=== PATIENT | female | born 1945 | race Caucasian/White ===

== ENCOUNTER 2017-12-06 09:01 | Emergency (ER) | payer MEDICARE, MEDICAID ==
[2017-12-06] MEDS ORDERED: Sodium Chloride 0.9% 10 ML Syringe FLUSH PRN (09:37)
[2017-12-06] MEDS ORDERED: Ondansetron 4 MG/2 ML SDV IVPUSH ONE (09:37)
[2017-12-06] MEDS ORDERED: HYDROmorphone 0.5 MG/0.5 ML SYRINGE IVPUSH ONE (09:41)
[2017-12-06] MEDS ORDERED: Sodium Chloride 0.9% 1,000 ML IV SCH (09:45)
--- NOTE | 2017-12-06 09:54 | EDM.PDOC ---
<Guero Nina - Last Filed: 12/06/17 09:43> ED HPI GENERAL MEDICAL PROBLEM - General Chief Complaint: Respiratory Problem Stated Complaint: SOB Time Seen by Provider: 12/06/17 09:20 Source of Information: Reports: Patient History Limitations: Reports: No Limitations - History of Present Illness INITIAL COMMENTS - FREE TEXT/NARRATIVE: Patient is a 71-year-old female who presents to the ED with a complaint of shortness of breath. It started yesterday morning and states she felt fatigued, dizzy and just couldn't wake up. She feels disoriented and off-balance, but denies falling or feeling like the room is spinning. She has blurred vision and feels like her head weighs a ton, but denies headache. She has known neuropathy in her legs, but feels the pain has increased since yesterday. She denies recent illness, fever, or chills. She is nauseated, vomited once this morning and has diarrhea. Denies chest pain or pressure. She has a history of COPD, but did not take her Spiriva or Symbicort this morning. She reports having a history of a heart attack, stents, and a 4 cm aortic aneurysm. She just recently moved to [place] from [place] and has not seen a paper slitter yet. Bilateral Leg Pain Score (Numeric/FACES): 9 - Related Data Allergies Allergy/AdvReac Type Severity Reaction Status Date / Time No Known Allergies Allergy Verified 12/06/17 09:12 Home Meds: Home Meds ALPRAZolam [Xanax] 0.5 mg PO BEDTIME PRN 12/06/17 [History] Carvedilol [Coreg] 6.25 mg PO BID 12/06/17 [History] Isosorbide Mononitrate [Imdur] 30 mg PO DAILY 12/06/17 [History] Pregabalin [Lyrica] 75 mg PO DAILY 12/06/17 [History] atorvaSTATin [Lipitor] 20 mg PO BEDTIME 12/06/17 [History] traMADol HCl [Tramadol HCl] 50 mg PO Q6HR PRN 12/06/17 [History] Past Medical History HEENT History: Reports: Impaired Vision Cardiovascular History: Reports: Aneurysm, [place] Other Cardiovascular History: aneurysm at 3 Respiratory History: Reports: COPD Genitourinary History: Reports: None Musculoskeletal History: Reports: Arthritis Neurological History: Reports: Neuropathy, Peripheral Psychiatric History: Reports: Anxiety - Past Surgical History Other Cardiovascular Surgeries/Procedures: 5 stents GI Surgical History: Reports: Cholecystectomy, Colonoscopy, Colostomy Other GI Surgeries/Procedures: "Had a fistula so they removed part of my bowel and had an ostomy bag. Then they did a reverse surgery." Female Surgical History: Reports: Hysterectomy Social & Family History - Family History Family Medical History: Noncontributory - Tobacco Use Smoking Status *Q: Current Every Day Smoker Years of Tobacco use: 58 Packs/Tins Daily: 0.5 - Caffeine Use Caffeine Use: Reports: Coffee Other Caffeine Use: Daily - Recreational Drug Use Recreational Drug Use: No ED ROS GENERAL - Review of Systems Constitutional: Reports: Weakness, Fatigue, Decreased Appetite. Denies: Fever, Chills HEENT: Reports: Glasses, Vision Change (blurred vision) Respiratory: Reports: Shortness of Breath. Denies: Wheezing, Pleuritic Chest Pain Cardiovascular: Reports: Lightheadedness. Denies: Chest Pain GI/Abdominal: Reports: Diarrhea, Decreased Appetite, Nausea. Denies: Abdominal Pain Musculoskeletal: Reports: Leg Pain (bilateral ) Neurological: Reports: Dizziness. Denies: Headache, Syncope Psychiatric: Denies: Agitation, Anxiety, Confusion ED EXAM, GENERAL - Physical Exam Exam Limited By: No Limitations General Appearance: Alert, WD/WN, No Apparent Distress Eye Exam: Bilateral Eye: Normal Inspection, PERRL Respiratory/Chest: No Respiratory Distress, Lungs Clear, Crackles, Rales. No: Chest Non-Tender, Respiratory Distress, Rhonchi Cardiovascular: Normal Peripheral Pulses, Regular Rate, Rhythm, No Edema, No Gallop, No JVD, No Murmur GI/Abdominal: Normal Bowel Sounds, Soft, Non-Tender, No Distention Extremities: Leg Pain (known neuropathy) Neurological: Alert, Oriented, Normal Cognition, Normal Reflexes Psychiatric: Normal Affect, Normal Mood Course - Vital Signs Last Recorded V/S: Last Vital Signs Temp 98.7 F 12/06/17 09:07 Pulse 70 12/06/17 09:07 Resp 20 12/06/17 09:07 BP 160/90 H 12/06/17 09:07 Pulse Ox 96 12/06/17 09:07 - Orders/Labs/Meds Orders: Active Orders 24 hr Category Date Time Status Cardiac Monitoring [RC] . DIRECTED Care 12/06/17 09:37 Active EKG Documentation Completion [RC] STAT Care 12/06/17 09:39 Active Oxygen Therapy [RC] PRN Care 12/06/17 09:37 Active Peripheral IV Care [RC] . DIRECTED Care 12/06/17 09:39 Active Regular Diet [DIET] Diet 12/06/17 Dinner Active Brain wo Cont [MR] Stat Exams 12/06/17 12:35 Taken Chest 1V Frontal [CR] Stat Exams 12/06/17 09:40 Taken UA W/MICROSCOPIC [URIN] Stat Lab 12/06/17 12:10 Ordered Sodium Chloride 0.9% [Normal Saline] 1,000 ml Med 12/06/17 09:45 Active IV ASDIRECTED Sodium Chloride 0.9% [Saline Flush] Med 12/06/17 09:37 Active 10 ml FLUSH ASDIRECTED PRN ED Antiemetic Medication Reflex [OM.PC] Stat Oth 12/06/17 09:37 Ordered Peripheral IV Insertion Adult [OM.PC] Stat Oth 12/06/17 09:37 Ordered Medication Orders Sodium Chloride (Normal Saline) 1,000 mls @ 125 mls/hr IV ASDIRECTED OSCAR Last Admin: 12/06/17 10:30 Dose: 125 mls/hr Sodium Chloride (Saline Flush) 10 ml FLUSH ASDIRECTED PRN PRN Reason: Keep Vein Open Last Admin: 12/06/17 10:35 Dose: 10 ml Labs: Laboratory Tests 12/06/17 12/06/17 12/06/17 Range/Units 09:37 10:25 12:10 WBC 6.16 (3.98-10.04) K/mm3 RBC 5.64 H (3.98-5.22) M/mm3 Hgb 15.0 (11.2-15.7) gm/L Hct 45.8 H (34.1-44.9) % MCV 81.2 (79.4-94.8) fl MCH 26.6 (25.6-32.2) pg MCHC 32.8 (32.2-35.5) g/dl RDW Std Deviation 50.3 H (36.4-46.3) fL Plt Count 205 (182-369) K/mm3 MPV 9.8 (9.4-12.3) fl Neut % (Auto) 72.8 H (34.0-71.1) % Lymph % (Auto) 21.8 (19.3-51.7) % [place] % (Auto) 3.7 L (4.7-12.5) % Eos % (Auto) 1.5 (0.7-5.8) Baso % (Auto) 0.2 (0.1-1.2) % Neut # (Auto) 4.49 (1.56-6.13) K/mm3 Lymph # (Auto) 1.34 (1.18-3.74) K/mm3 [place] # (Auto) 0.23 L (0.24-0.36) K/mm3 Eos # (Auto) 0.09 (0.04-0.36) K/mm3 Baso # (Auto) 0.01 (0.01-0.08) K/mm3 PT (9.5-12.1) SECONDS INR APTT (24-31) SECONDS Sodium 146 H (136-145) mEq/L Potassium 4.0 (3.5-5.1) mEq/L Chloride 109 H (98-107) mEq/L Carbon Dioxide 25 (21-32) mEq/L Anion Gap 16.0 H (5-15) BUN 17 (7-18) mg/dL Creatinine 0.7 (0.55-1.02) mg/dL Est Cr Clr Drug Dosing 50.98 mL/min Estimated GFR (MDRD) > 60 (>60) mL/min BUN/Creatinine Ratio 24.3 H (14-18) Glucose 102 (83-115) mg/dL Calcium 9.1 (8.5-10.1) mg/dL Magnesium 2.0 (1.8-2.4) mg/dl Total Bilirubin 0.7 (0.2-1.0) mg/dL AST 12 L (15-37) U/L ALT 13 L (14-59) U/L Alkaline Phosphatase 97 (46-116) U/L Troponin I < 0.017 (0.00-0.056) ng/mL Total Protein 6.9 (6.4-8.2) g/dl Albumin 3.4 (3.4-5.0) g/dl Globulin 3.5 gm/dL Albumin/Globulin Ratio 1.0 (1-2) TSH 3rd Generation 2.080 (0.358-3.74) uIU/mL Urine Color Yellow (Yellow) Urine Appearance Clear (Clear) Urine pH 7.0 (5.0-8.0) Ur Specific [place] 1.025 (1.005-1.030) Urine Protein Trace H (Negative) Urine Glucose (UA) Negative (Negative) Urine Ketones Negative (Negative) Urine Occult Blood Negative (Negative) Urine Nitrite Negative (Negative) Urine Bilirubin 1+ H (Negative) Urine Urobilinogen 2.0 H (0.2-1.0) Ur Leukocyte Esterase Trace H (Negative) Urine RBC Not seen (0-5) /hpf Urine WBC 5-10 H (0-5) /hpf Ur Epithelial Cells 5-10 H (0-5) /hpf Urine Bacteria Few (FEW) /hpf Urine Mucus Few (FEW) /hpf 12/06/17 Range/Units Unknown WBC (3.98-10.04) K/mm3 RBC (3.98-5.22) M/mm3 Hgb (11.2-15.7) gm/L Hct (34.1-44.9) % MCV (79.4-94.8) fl MCH (25.6-32.2) pg MCHC (32.2-35.5) g/dl RDW Std Deviation (36.4-46.3) fL Plt Count (182-369) K/mm3 MPV (9.4-12.3) fl Neut % (Auto) (34.0-71.1) % Lymph % (Auto) (19.3-51.7) % [place] % (Auto) (4.7-12.5) % Eos % (Auto) (0.7-5.8) Baso % (Auto) (0.1-1.2) % Neut # (Auto) (1.56-6.13) K/mm3 Lymph # (Auto) (1.18-3.74) K/mm3 [place] # (Auto) (0.24-0.36) K/mm3 Eos # (Auto) (0.04-0.36) K/mm3 Baso # (Auto) (0.01-0.08) K/mm3 PT 10.8 (9.5-12.1) SECONDS INR 0.99 APTT 26 (24-31) SECONDS Sodium (136-145) mEq/L Potassium (3.5-5.1) mEq/L Chloride (98-107) mEq/L Carbon Dioxide (21-32) mEq/L Anion Gap (5-15) BUN (7-18) mg/dL Creatinine (0.55-1.02) mg/dL Est Cr Clr Drug Dosing mL/min Estimated GFR (MDRD) (>60) mL/min BUN/Creatinine Ratio (14-18) Glucose (83-115) mg/dL Calcium (8.5-10.1) mg/dL Magnesium (1.8-2.4) mg/dl Total Bilirubin (0.2-1.0) mg/dL AST (15-37) U/L ALT (14-59) U/L Alkaline Phosphatase (46-116) U/L Troponin I (0.00-0.056) ng/mL Total Protein (6.4-8.2) g/dl Albumin (3.4-5.0) g/dl Globulin gm/dL Albumin/Globulin Ratio (1-2) TSH 3rd Generation (0.358-3.74) uIU/mL Urine Color (Yellow) Urine Appearance (Clear) Urine pH (5.0-8.0) Ur Specific [place] (1.005-1.030) Urine Protein (Negative) Urine Glucose (UA) (Negative) Urine Ketones (Negative) Urine Occult Blood (Negative) Urine Nitrite (Negative) Urine Bilirubin (Negative) Urine Urobilinogen (0.2-1.0) Ur Leukocyte Esterase (Negative) Urine RBC (0-5) /hpf Urine WBC (0-5) /hpf Ur Epithelial Cells (0-5) /hpf Urine Bacteria (FEW) /hpf Urine Mucus (FEW) /hpf Meds: Medications Generic Name Dose Route Start Last Admin Trade Name Freq PRN Reason Stop Dose Admin Sodium Chloride 1,000 mls @ 125 mls/hr 12/06/17 09:45 12/06/17 10:30 Normal Saline IV 125 mls/hr ASDIRECTED OSCAR Administration Sodium Chloride 10 ml 12/06/17 09:37 12/06/17 10:35 Saline Flush FLUSH 10 ml ASDIRECTED PRN Administration Keep Vein Open Discontinued Medications Generic Name Dose Route Start Last Admin Trade Name Freq PRN Reason Stop Dose Admin Hydromorphone HCl 0.5 mg 12/06/17 09:41 12/06/17 10:32 Dilaudid IVPUSH 12/06/17 09:42 0.5 mg ONETIME ONE Administration Lorazepam 1 mg 12/06/17 12:41 12/06/17 12:47 Ativan IVPUSH 12/06/17 12:42 1 mg ONETIME ONE Administration Ondansetron HCl 4 mg 12/06/17 09:37 12/06/17 10:30 Zofran IVPUSH 12/06/17 09:38 4 mg ONETIME ONE Administration Departure - Departure Disposition: Home, Self-Care 01 Clinical Impression: Nausea, Pressure in head, Hemangioma UTI (urinary tract infection) Qualifiers: Urinary tract infection type: site unspecified Hematuria presence: without hematuria Qualified Code(s): N39.0 - Urinary tract infection, site not specified - Discharge Information Referrals: Tg Barber PA [Primary Care Provider] - 1 Week Alexander Blevins MD [Consulting Physician] - (in 3 to 6months) Forms: ED Department Discharge Additional Instructions: Take the macrobid 2 times per day for 5 days. Drink plenty of fluids. Take the rest of your medications as prescribed. Please return if you are worse. - My Orders Last 24 Hours: My Active Orders 12/06/17 09:37 Cardiac Monitoring [RC] . DIRECTED Oxygen Therapy [RC] PRN Sodium Chloride 0.9% [Saline Flush] 10 ml FLUSH ASDIRECTED PRN ED Antiemetic Medication Reflex [OM.PC] Stat Peripheral IV Insertion Adult [OM.PC] Stat 12/06/17 09:39 EKG Documentation Completion [RC] STAT Peripheral IV Care [RC] . DIRECTED 12/06/17 09:40 Chest 1V Frontal [CR] Stat 12/06/17 09:45 Sodium Chloride 0.9% [Normal Saline] 1,000 ml IV ASDIRECTED 12/06/17 12:10 UA W/MICROSCOPIC [URIN] Stat 12/06/17 12:35 Brain wo Cont [MR] Stat 12/06/17 Dinner Regular Diet [DIET] - Assessment/Plan Last 24 Hours: My Active Orders 12/06/17 09:37 Cardiac Monitoring [RC] . DIRECTED Oxygen Therapy [RC] PRN Sodium Chloride 0.9% [Saline Flush] 10 ml FLUSH ASDIRECTED PRN ED Antiemetic Medication Reflex [OM.PC] Stat Peripheral IV Insertion Adult [OM.PC] Stat 12/06/17 09:39 EKG Documentation Completion [RC] STAT Peripheral IV Care [RC] . DIRECTED 12/06/17 09:40 Chest 1V Frontal [CR] Stat 12/06/17 09:45 Sodium Chloride 0.9% [Normal Saline] 1,000 ml IV ASDIRECTED 12/06/17 12:10 UA W/MICROSCOPIC [URIN] Stat 12/06/17 12:35 Brain wo Cont [MR] Stat 12/06/17 Dinner Regular Diet [DIET] <Karl Pastor - Last Filed: 12/06/17 14:46> ED HPI GENERAL MEDICAL PROBLEM - General Source of Information: Reports: Patient History Limitations: Reports: No Limitations - History of Present Illness Onset: Gradual Duration: Day(s): Severity: Moderate Improves with: Reports: None Worsens with: Reports: None Associated Symptoms: Reports: Headaches, Nausea/Vomiting, Shortness of Breath. Denies: Chest Pain, Fever/Chills ED ROS GENERAL - Review of Systems Review Of Systems: See Below ED EXAM, GENERAL - Physical Exam Exam: See Below Ears: Normal External Exam Nose: Nasal Deformity Throat/Mouth: Normal Inspection Head: Atraumatic, Normocephalic Neck: Normal Inspection EKG INTERPRETATION EKG Date: 12/06/17 Time: 10:11 Rhythm: NSR Rate (Beats/Min): 66 Cranks: Normal P-Wave: Present QRS: Normal ST-T: Normal QT: Normal Course - Re-Assessments/Exams Free Text/Narrative Re-Assessment/Exam: 12/06/17 12:45 I ordered an IV NS, labs, EKG, CXR and CT of her head. Her EKG shows a NSR with no acute changes. The CT of her head shows a very small amount of extra- axial blood next to the interhemispheric fissure anteriorly. This finding measures approximately 7mm. Sensescent change as noted above. No additional abnormality is seen. Recommend follow-up CT study in 48 hours to confirm stability. 12/06/17 14:41 Her CBC and CMP look good. Her troponin is negative. I called [facility] and talked with Dr [employer] computer consultant neurosurgeon and he recommended either an MRI or a repeat CT of her head within 24 hours. I was able to get an MRI. The MRI showed a small extra-axial abnormality adjacent to the right side of the anterior interhemispheric falx. On MRI study this has the appearance of a small hemingioma rather than a smal bleed. The patient's UA came back showing she has a UTI. I will get her on some macrobid. Departure - Departure Time of Disposition: 02:45 Condition: Good - Discharge Information *PRESCRIPTION DRUG MONITORING PROGRAM REVIEWED*: Not Applicable *COPY OF PRESCRIPTION DRUG MONITORING REPORT IN PATIENT JOI: Not Applicable
--- NOTE | 2017-12-06 10:25 | CT ---
Head CT Technique: Multiple axial sections through the brain were obtained. Intravenous contrast was not utilized. Comparison: No prior intracranial imaging. Findings: Atherosclerotic calcification seen in the carotid siphon and within the vertebral arteries. Old lacunar infarct is noted within the left basal ganglia. Small area of increased density is seen adjacent to the anterior interhemispheric falx. This has Hounsfield unit measurements of blood and is felt to represent very minimal extra-axial hemorrhage. No other abnormal parenchymal densities are seen. No midline shift or mass effect is seen. Ventricles along with basal cisterns and sulci over convexities are within normal limits. Bone window settings were reviewed which shows no acute calvarial abnormality. Visualized sinuses are clear. Impression: 1. Very small amount of extra-axial blood next to the interhemispheric fissure anteriorly. This finding measures approximately 7 mm. 2. Senescent change as noted above. No additional abnormality is seen. Note: Recommend follow-up CT study in 48 hours to confirm stability. Diagnostic code #5
[2017-12-06] MEDS ORDERED: LORazepam 2 MG/ML SDV IVPUSH ONE (12:41)
--- NOTE | 2017-12-06 14:53 | MR ---
MRI brain Technique: T1 sagittal; T2, T2 FLAIR, diffusion and T1 axial; T1 coronal images were obtained to the brain. Comparison: Previous head CT study performed earlier on same day (time 10 AM). Findings: Small abnormality is seen with its base against the anterior interhemispheric falx. This is extra-axial in location. This is of low signal on all sequences. Differential now includes a small meningioma showing partial calcification giving it the Hounsfield unit measurements of blood on prior CT exam. Ventricles along with basal cisterns and sulci over the convexities are mildly prominent. Old lacunar infarct is noted within the left basal ganglia. No other abnormal signal is seen within the brain parenchyma. No midline shift or mass effect is seen. Impression: 1. Small extra-axial abnormality adjacent to the right side of the anterior interhemispheric falx. On MRI study this has the appearance of a small meningioma rather than a small bleed. 2. Mild senescent change as noted above. Diagnostic code #3
--- NOTE | 2017-12-08 18:33 | CR ---
Chest: Portable view of the chest was obtained. Comparison: No prior study. Heart size and mediastinum are within normal limits for portable technique. Lungs are clear without acute parenchymal change. Lungs are hyperinflated. Nodule is noted within the right lung base which is felt compatible with nipple density. Bony structures are osteopenic. Mild scoliosis is present within the spine. Impression: 1. Lungs are hyperinflated likely representing emphysematous change. 2. Other incidental findings. Nothing acute is suspected. Diagnostic code #2
== END 2017-12-06 15:08 | disposition home or self-care (01) ==
LOC: JD.ED 09:01
DX: N39.0 Urinary tract infection, site not specified (principal); D18.00 Hemangioma unspecified site; G90.09 Other idiopathic peripheral autonomic neuropathy; F17.210 Nicotine dependence, cigarettes, uncomplicated; J44.9 Chronic obstructive pulmonary disease, unspecified; F41.9 Anxiety disorder, unspecified; Z79.899 Other long term (current) drug therapy
CPT/HCPCS: 36415; 70450; 70551; 71045; 80053; 81001; 83735; 84443; 84484; 85025; 85610; 85730; 93005; 96361; 96374; 96375; 99285; J1170; J2060; J2405; J7040; J7050